=== PATIENT | male | born 1960 | race Caucasian/White ===

== ENCOUNTER 2016-07-24 14:19 | Emergency (ER) | payer BC ==
[~2016-07-24] VITALS: Ht 182.9 cm; Wt 104.5 kg
[2016-07-24 14:21] VITALS: BP 145/95
[2016-07-24 16:37] VITALS: PULSE 87
== END 2016-07-24 16:38 | disposition home or self-care (01) ==
LOC: COL.ER 14:19
DX: R04.0 Epistaxis (principal); Z98.890 Other specified postprocedural states